=== PATIENT | female | born 1940 | race Caucasian/White ===

== ENCOUNTER 2016-08-10 14:58 | Inpatient (IN) | payer OTHER, MEDICAID ==
--- NOTE | 2016-08-10 15:18 | EDPHY ---
H & P Stated Complaint: fall getting off of toilet, wound to R buttocks Time Seen by Provider: 08/10/16 15:03 HPI/ROS: CHIEF COMPLAINT: Abrasion HISTORY OF PRESENT ILLNESS: The patient is a 75-year-old morbidly obese woman with significant lower extremity edema who fell from her toilet this afternoon and scratched her right buttocks on the toilet paper roll lucia. she takes Coumadin for history of atrial fibrillation . EMS was called for lift assist but decided to bring her here because of her anticoagulant use. The patient has a very hard time getting around at home but is currently under the care of home health and home massage and wears air oscillating leg compression devices in bed. She has also seen by physical therapy. she also has a venous stasis ulcer in her left heel that is well cared for. Her wound care nurses coming tomorrow. REVIEW OF SYSTEMS: Constitutional: denies: chills, fever, recent illness, recent injury EENTM: denies: blurred vision, double vision, nose congestion Respiratory: denies: cough, shortness of breath Cardiac: denies: chest pain, irregular heart rate, lightheadedness, palpitations Gastrointestinal/Abdominal: denies: abdominal pain, diarrhea, nausea, vomiting, blood streaked stools Genitourinary: denies: dysuria, frequency, hematuria, pain Musculoskeletal: denies: joint pain, muscle pain Skin: see HPI Neurological: denies: headache, numbness, paresthesia, tingling, dizziness, weakness Hematologic/Lymphatic: denies: blood clots, easy bleeding, easy bruising Immunologic/allergic: denies: HIV/AIDS, transplant EXAM: GENERAL: Morbid obesity HEAD: Atraumatic, normocephalic. EYES: Pupils equal round and reactive to light, extraocular movements intact, sclera anicteric, conjunctiva are normal. ENT: TMs normal, nares patent, oropharynx clear without exudates. Moist mucous membranes. NECK: Normal range of motion, supple without lymphadenopathy or JVD. LUNGS: Breath sounds clear to auscultation bilaterally and equal. No wheezes rales or rhonchi. HEART: Regular rate and rhythm without murmurs, rubs or gallops. ABDOMEN: Soft, nontender, normoactive bowel sounds. No guarding, no rebound. No masses appreciated. BACK: No CVA tenderness, no spinal tenderness, step-offs or deformities EXTREMITIES: Normal range of motion, no pitting or edema. No clubbing or cyanosis. NEUROLOGICAL: Cranial nerves II through XII grossly intact. Normal speech, normal gait. 5/5 strength, normal movement in all extremities, normal sensation PSYCH: Normal mood, normal affect. SKIN: Abrasion to right gluteus and cleft, no laceration, no hematoma Source: Patient, EMS Exam Limitations: No limitations - Personal History Current Tetanus/Diphtheria Vaccine: Unsure Current Tetanus Diphtheria and Acellular Pertussis (TDAP): Unsure - Medical/Surgical History Hx Asthma: No Hx Chronic Respiratory Disease: No Hx Diabetes: Yes Hx Cardiac Disease: Yes Hx Renal Disease: No Hx Cirrhosis: No Hx Alcoholism: No Hx HIV/AIDS: No Hx Splenectomy or Spleen Trauma: No Other PMH: PMH- kidney stones, arthritis, DM, breast CA-1992, HTN, afib. PSH- R masectomy, dagmar, lymphadema, chronic wound lle, PE's, chronically anticoagulated, copd, asthma - Family History Significant Family History: No pertinent family hx - Social History Smoking Status: Never smoked Alcohol Use: Sober Drug Use: None Constitutional: Initial Vital Signs Temperature (C) 36.9 C 08/10/16 15:10 Heart Rate 87 08/10/16 15:10 Respiratory Rate 18 08/10/16 15:10 Blood Pressure 112/82 H 08/10/16 15:10 O2 Sat (%) 72 L 08/10/16 15:10 O2 Delivery Mode Room Air O2 (L/minute) 4 Allergies/Adverse Reactions: bee pollen [Bee Pollen] Allergy (Intermediate, Verified 02/19/16 23:08) adhesive Allergy (Verified 02/19/16 23:08) Penicillins Allergy (Verified 08/10/16 15:10) Home Medications: Medication Instructions Recorded Albuterol [Proventil Neb] 3 ml IH TID 02/20/16 Diltiazem HCl [Cartia XT 180mg] 180 mg PO DAILY 02/20/16 Losartan Potassium [Cozaar 50 mg 50 mg PO HS 02/20/16 (*)] Oxybutynin Chloride [Ditropan] 5 mg PO BID 02/20/16 sulfaSALAzine [Azulfidine 500 MG 500 mg PO BID 08/31/16 (*)] Atorvastatin Calcium [Lipitor 40 40 mg PO HS 08/10/16 mg (*)] Diclofenac Sodium [Voltaren Gel 1 radha TP QID 08/10/16 (*)] Herbals/Supplements -Info Only 1 ea PO DAILY 08/10/16 Insulin Aspart [novoLOG] 5 units SC TIDMEAL 08/10/16 Insulin Detemir [Levemir] 20 unit SQ BID 08/10/16 Metoprolol Tartrate [Lopressor 100 100 mg PO BID 08/10/16 mg (*)] Naproxen Sodium [Aleve 220 MG (*)] 220 mg PO BID PRN 08/10/16 Warfarin Sodium [Coumadin 5MG (*)] 5 mg PO DAILY16 08/10/16 Medical Decision Making ED Course/Re-evaluation: I had an extensive discussion with this patient and her family about her mobility at home and ability to take care of herself. I offered admission the hospital in even considered placement to nursing over the patient adamantly denies this. She states that she wants to be in her home and would rather than go anywhere else. She has several care providers assisting her with this already. The wound on her gluteus is very minimal. It was cleaned and dressed with antibiotic ointment. No hematoma. She did not hit her head. She has normal range of motion of all extremities. She denies neck pain. The patient states that she does not see what we can do her for her hospital and does not think that she needs to be here but that EMS insisted she come. 4:30 p.m. after further discussion and discussion with case management the patient and family have decided to stay in the hospital with concerns that she cannot care for herself at home alone. This is reasonable. I discussed the case with Dr. Ricky Chow who will admit. I will order lab work. Differential Diagnosis: Partial list of the Differential diagnosis considered include but were not limited to; fall, abrasion, head injury, obesity, lymphedema and although unlikely based on the history and physical exam, I also considered infection, altered mental status, CVA, acute coronary disease. I discussed these differential diagnoses and the plan with the patient as well as the usual and expected course. The patient understands that the diagnosis is provisional and that in medicine we are not always correct and that further workup is often warranted. Usual and customary warnings were given. All of the patient's questions were answered. The patient was instructed to return to the emergency department should the symptoms at all worsen or return, otherwise to followup with the physician as we discussed. Departure - Departure Disposition: Home, Routine, Self-Care Clinical Impression: Abrasion Morbid obesity Qualifiers: Obesity type: due to excess calories Qualified Code(s): E66.01 - Morbid (severe ) obesity due to excess calories Condition: Fair
[2016-08-10 17:15] LABS: % IMMATURE GRANULYOCYTES 0.3 % (0.0-1.1); ABSOLUTE IMMATURE GRANULOCYTES 0.02 10^3/uL (0.00-0.10); ADD DIFF? NO; ADD MORPH? NO; ADD SCAN? NO; ATYPICAL LYMPHOCYTE FLAG 0 (0-99); FRAGMENT RBC FLAG 20 (0-99); HEMOGLOBIN 11.5 g/dL (12.6-16.3); LEFT SHIFT FLG 0 (0-99); LIPEMIA HEMOLYSIS FLAG 80 (0-99); MEAN CELL HEMOGLOBIN 29.5 pg (27.9-34.1); MEAN CELL HEMOGLOBIN CONCENTR. 31.9 g/dL (32.4-36.7); MEAN CELL VOLUME 92.3 fL (81.5-99.8); MEAN PLATELET VOLUME 10.9 fL (8.7-11.7); PLATELET CLUMPS FLAG 0 (0-99); PLATELET COUNT 161 10^3/uL (150-400); RED CELL DISTRIBUTION WIDTH 17.9 % (11.5-15.2)
[2016-08-10 17:25] LABS: INR 2.44 (0.83-1.16); PROTIME(PATIENT) 26.7 SEC (12.0-15.0)
[2016-08-10 17:26] LABS: APTT 33.6 SEC (23.0-38.0)
[2016-08-10 17:30] LABS: ANION GAP 9 mEq/L (8-16); CALCIUM 9.2 mg/dL (8.5-10.4); CARBON DIOXIDE 22 mEq/l (22-31); CHLORIDE 106 mEq/L (97-110); CREATININE 1.4 mg/dL (0.6-1.0); GLOMERULAR FILTRATION RATE 37; GLUCOSE 224 mg/dL (70-100); POTASSIUM 5.5 mEq/L (3.5-5.2); SODIUM 137 mEq/L (134-144)
--- NOTE | 2016-08-10 17:58 | PDGENHP ---
History and Physical - Chief Complaint fall - History of Present Illness 75F with a history of morbid obesity and chronic lymphedema presents with an abrasion sustained after falling while walking to the toilet today. Earlier this morning, while ambulating to the toilet the patient fell on her right buttock, possibly against the toilet paper lucia. EMS was called for lift assist, however, when they learned she was on coumadin for atrial fibrillation, she was transported to [facility]. She is currently complaining of right knee pain with movement and increased swelling. She states she is compliant with a low salt diet. Her daughters Xochitl and Chary moved her out of [facility] in May. Her family is unable to care for her at home. She denies any chest pain, and has chronic shortness of breath requiring 2L/min O2 at home. She ambulates with two canes, and she does not want a walker. History Information - Allergies/Home Medication List Allergies/Adverse Reactions: bee pollen [Bee Pollen] Allergy (Intermediate, Verified 02/19/16 23:08) adhesive Allergy (Verified 02/19/16 23:08) Penicillins Allergy (Verified 08/10/16 15:10) Home Medications: Albuterol [Proventil Neb] 3 ml IH TID 02/20/16 [Last Taken 08/03/16] Diltiazem HCl [Cartia XT 180mg] 180 mg PO DAILY 02/20/16 [Last Taken 08/10/16] Losartan Potassium [Cozaar 50 mg (*)] 50 mg PO HS 02/20/16 [Last Taken 08/09/16] Oxybutynin Chloride [Ditropan] 5 mg PO BID 02/20/16 [Last Taken 08/09/16] sulfaSALAzine [Azulfidine 500 MG (*)] 500 mg PO BID 02/20/16 [Last Taken ] Atorvastatin Calcium [Lipitor 40 mg (*)] 40 mg PO HS 08/10/16 [Last Taken ] Diclofenac Sodium [Voltaren Gel (*)] 1 radha TP QID 08/10/16 [Last Taken Unknown] Herbals/Supplements -Info Only 1 ea PO DAILY 08/10/16 [Last Taken Unknown] Insulin Aspart [novoLOG] 5 units SC TIDMEAL 08/10/16 [Last Taken 08/09/16] Insulin Detemir [Levemir] 20 unit SQ BID 08/10/16 [Last Taken 08/09/16] Metoprolol Tartrate [Lopressor 100 mg (*)] 100 mg PO BID 08/10/16 [Last Taken 08:00] Naproxen Sodium [Aleve 220 MG (*)] 220 mg PO BID PRN 08/10/16 [Last Taken Unknown] Warfarin Sodium [Coumadin 5MG (*)] 5 mg PO DAILY16 08/10/16 [Last Taken 08/09/16 ] I have personally reviewed and updated: family history, medical history, social history, surgical history - Past Medical History Additional medical history: HTN, GERD, lymphedema 2/2 breast CA in 1992, Type 2 DM, Atrial fibrillation, PE 4 years ago, arthritis, COPD/asthma on chronic supplemental o2, hospitalization 02/2015 for hypoglycemia and strep mitis bactermia due to a diabetic foot infection - Surgical History Additional surgical history: umbilical hernia, cholecystectomy, i&d left heel ulcer 03/07 - Social History Smoking Status: Never smoked Alcohol Use: Sober Drug Use: None Review of Systems ROS: 10pt was reviewed & negative except for what was stated in HPI & below Respiratory: Reports: shortness of breath (chronic 2L/min) Genitourinary: Reports: incontinence Physical Exam Temp Pulse Resp BP Pulse Ox 37 C 78 15 136/80 H 95 08/10/16 17:41 08/10/16 17:41 08/10/16 17:41 08/10/16 17:41 08/10/16 17:41 O2 (L/minute) 4 Constitutional: no apparent distress, not in pain Eyes: PERRL, anicteric sclera, EOMI Ears, Nose, Mouth, Throat: moist mucous membranes, hearing normal, ears appear normal, no oral mucosal ulcers Cardiovascular: regular rate and rhythym, no murmur, rub, or gallop, No edema Respiratory: no respiratory distress, no rales or rhonchi, clear to auscultation , expiratory wheeze, No rhonchi Gastrointestinal: normoactive bowel sounds, soft, non-tender abdomen, no palpable masses, No guarding, No rebound Genitourinary: no bladder fullness, no bladder tenderness Skin: other (reported right buttock abrasion per ED note) Neurologic: AAOx3, CN II-XII Intact, No facial droop Psychiatric: interacting appropriately, not anxious, not encephalopathic, thought process linear Lab Data & Imaging Review 08/10/16 17:05 08/10/16 17:05 WBC 6.04 10^3/uL (3.80-9.50) 08/10/16 17:05 RBC 3.90 10^6/uL (4.18-5.33) L 08/10/16 17:05 Hgb 11.5 g/dL (12.6-16.3) L 08/10/16 17:05 Hct 36.0 % (38.0-47.0) L 08/10/16 17:05 MCV 92.3 fL (81.5-99.8) 08/10/16 17:05 MCH 29.5 pg (27.9-34.1) 08/10/16 17: MCHC 31.9 g/dL (32.4-36.7) L 08/10/16 17: RDW 17.9 % (11.5-15.2) H 08/10/16 17:05 Plt Count 161 10^3/uL (150-400) 08/10/16 17:05 MPV 10.9 fL (8.7-11.7) 08/10/16 17:05 Neut % (Auto) 73.1 % (39.3-74.2) 08/10/16 17:05 Lymph % (Auto) 13.7 % (15.0-45.0) L 08/10/16 17:05 Gove % (Auto) 7.8 % (4.5-13.0) 08/10/16 17:05 Eos % (Auto) 4.1 % (0.6-7.6) 08/10/16 17:05 Baso % (Auto) 1.0 % (0.3-1.7) 08/10/16 17:05 Nucleat RBC Rel Count 0.0 % (0.0-0.2) 08/10/16 17:05 Absolute Neuts (auto) 4.41 10^3/uL (1.70-6.50) 08/10/16 17:05 Absolute Lymphs (auto) 0.83 10^3/uL (1.00-3.00) L 08/10/16 17:05 Absolute Monos (auto) 0.47 10^3/uL (0.30-0.80) 08/10/16 17:05 Absolute Eos (auto) 0.25 10^3/uL (0.03-0.40) 08/10/16 17:05 Absolute Basos (auto) 0.06 10^3/uL (0.02-0.10) 08/10/16 17:05 Absolute Nucleated RBC 0.00 10^3/uL (0-0.01) 08/10/16 17:05 Immature Gran % 0.3 % (0.0-1.1) 08/10/16 17:05 Immature Gran # 0.02 10^3/uL (0.00-0.10) 08/10/16 17:05 PT 26.7 SEC (12.0-15.0) H 08/10/16 17:05 INR 2.44 (0.83-1.16) H 08/10/16 17:05 APTT 33.6 SEC (23.0-38.0) 08/10/16 17:05 Sodium 137 mEq/L (134-144) 08/10/16 17:05 Potassium 5.5 mEq/L (3.5-5.2) H 08/10/16 17:05 Chloride 106 mEq/L (97-110) 08/10/16 17:05 Carbon Dioxide 22 mEq/l (22-31) 08/10/16 17:05 Anion Gap 9 mEq/L (8-16) 08/10/16 17:05 BUN 38 mg/dL (7-23) H 08/10/16 17:05 Creatinine 1.4 mg/dL (0.6-1.0) H 08/10/16 17:05 Estimated GFR 37 08/10/16 17:05 Glucose 224 mg/dL (70-100) H 08/10/16 17:05 Calcium 9.2 mg/dL (8.5-10.4) 08/10/16 17:05 Assessment & Plan Assessment: 75F with morbid obesity and chronic lymphedema presents with an abrasion s/p mechanical fall #failure to thrive and weakness -the patient is currently unsafe to return to her home independent living situation due to inability to ambulate. She was discharged from SNF 2 months ago and will likely require further rehabilitation prior to returning home #chronic hypoxemic respiratory failure in setting of COPD/asthma Continue O2 #afib Regular at this time, continue ASA, atenolol, warfarin, INR is appropriate # anemia Chronic, normocytic, will monitor # CKD Creatinine 1.4, stable, will monitor #hyperkalemia No weakness hold Cozaar ekg repeat labs in am will hold Kayexalate at this time #Right Buttock abrasion (present on admission) with gluteal pressure sores stage II-III also present on admission wound care consult #chronic L heel cellulitis with history of strep mitis bacteremia and foot infections Managed by wound care #dispo will admit to inpatient. likely need snf
[2016-08-10] MEDS ORDERED: PARAMETERS MISC PRN (20:10)
[2016-08-10] MEDS ORDERED: D50W 25 GM/50 ML VIAL IVP PRN (20:10)
[2016-08-10] MEDS ORDERED: D50W 25 GM/50 ML SYR IVP PRN (20:10)
[2016-08-10] MEDS: ALBUTEROL 3 ML DEYVIAL IH SCH (20:56)
[2016-08-10] MEDS ORDERED: NON-FORMULARY NEW DRUG (Insulin Detemir [Levemir] 20 UNIT) SQ SCH (21:00)
[2016-08-10] MEDS: METOPROLOL TARTRATE 100 MG TAB PO SCH (21:34)
[2016-08-10] MEDS: NON-FORMULARY NEW DRUG (Diclofenac Sodium [Voltaren Gel (*)] 1 APP) TP SCH ×2 (21:35→22:18)
[2016-08-10] MEDS: INSULIN GLARGINE 100 UNITS/ML SYRINGE SC SCH (21:35)
[2016-08-10] MEDS: OXYBUTYNIN CHLORIDE 5 MG TAB PO SCH (21:35)
[2016-08-10] MEDS: ATORVASTATIN CALCIUM 40 MG TAB PO SCH (21:35)
[2016-08-10] MEDS: sulfaSALAzine 500 MG TAB PO SCH (22:26)
[2016-08-10] MEDS ORDERED: FLU VACC TS 2016-17(65YR+)/PF 0.5 ML SYR (FLUZONE HIGH DOSE) IM ONE (23:32)
[2016-08-11] MEDS: traMADol 50 MG TAB PO PRN (03:06)
[2016-08-11 03:07] LABS: ANION GAP 9 mEq/L (8-16); CALCIUM 8.8 mg/dL (8.5-10.4); CARBON DIOXIDE 24 mEq/l (22-31); CHLORIDE 108 mEq/L (97-110); CREATININE 1.4 mg/dL (0.6-1.0); GLOMERULAR FILTRATION RATE 37; GLUCOSE 214 mg/dL (70-100); POTASSIUM 5.2 mEq/L (3.5-5.2); SODIUM 141 mEq/L (134-144)
--- NOTE | 2016-08-11 07:34 | CPEKG ---
Heart Rate: 90 RR Interval: 667 QRSD Interval: 90 QT Interval: 372 QTC Interval: 455 QRS Langley: 31 T Wave Langley: 44 EKG Severity - ABNORMAL ECG - EKG Impression: ATRIAL FIBRILLATION, V-RATE 73-109 EKG Impression: LOW VOLTAGE IN FRONTAL LEADS Electronically Signed By: Shawn Darnell 11-Aug-2016 07:45:07
[2016-08-11] MEDS ORDERED: INSULIN ASPART 5 UNIT SC SCH (08:00)
[2016-08-11] MEDS: INSULIN LISPRO 100 UNIT/ML SC SCH ×3 (08:31→18:27)
[2016-08-11] MEDS: INSULIN GLARGINE 100 UNITS/ML SYRINGE SC SCH ×2 (08:31→23:06)
[2016-08-11] MEDS: METOPROLOL TARTRATE 100 MG TAB PO SCH ×2 (08:32→21:20)
[2016-08-11] MEDS: sulfaSALAzine 500 MG TAB PO SCH ×2 (08:32→21:20)
[2016-08-11] MEDS: DILTIAZEM CD 180 MG CAP PO SCH (08:33)
[2016-08-11] MEDS: OXYBUTYNIN CHLORIDE 5 MG TAB PO SCH ×2 (08:33→21:20)
[2016-08-11] MEDS ORDERED: NON-FORMULARY NEW DRUG (Diltiazem Hcl [Cartia Xt 180mg] 180 MG) PO SCH (09:00)
[2016-08-11] MEDS ORDERED: Herbals/Supplements -Info Only PO SCH (09:00)
[2016-08-11] MEDS ORDERED: ENOXAPARIN 40 MG/0.4 ML SYR SC SCH (09:00)
[2016-08-11] MEDS: ALBUTEROL 3 ML DEYVIAL IH SCH ×3 (09:24→21:40)
--- NOTE | 2016-08-11 12:03 | HOSPPROG ---
Hospitalist Progress Note Assessment/Plan: Patient is a 75-year-old female presented to the emergency room due to gait instability. She sustained a fall after walking to the toilet earlier that day. On admission she was complaining of right knee pain with any type of movement. Her daughters were with her and are unable to care for her at home. Today is my 1st encounter with the patient. Chart reviewed. * Overall failure to thrive due to weakness and gait instability - she was recently at a [facility] facility approximately 2 [facility] ago - Physical therapy and Occupational therapy are working with her /recommending a [facility] facility - suspect her failure to thrive is multifactorial including morbid obesity, chronic lymphedema, atrial fibrillation * atrial fibrillation - reviewed her 12 lead ECG which shows atrial fibrillation rate controlled - continue oral anticoagulation atenolol and aspirin therapy * chronic kidney disease - creatinine is 1.4 * hyperkalemia - resolved /Cozaar on hold *chronic hypoxemia -cont O2 * anemia -follow * right buttock abrasion /present on admission with gluteal pressure sores - wound care to further evaluate * chronic left heel cellulitis with a history of strep mitis bacteremia and foot infections -wound care * severe chronic lymphedema (secondary to breast Ca) - likely impaired impacting her ability to ambulate -would benefit from lymphatic drainage from PT and pneumatic compression stockings -?if she would qualify for IP rehab * type 2 diabetes - on long-acting insulin, glucoses are uncontrolled -will add sliding scale -ADA diet *Morbid obesity/BMI of 45 *plan: reviewed her care w CM/she will need SNF and possibly ferry terminal agent care Subjective: Liliya has no specific complaints/ she is concerned about her ability to mobilize/ Objective: Vital Signs Temp Pulse Resp BP Pulse Ox 36.6 C 77 14 117/73 91 L 08/11/16 11:56 08/11/16 11:56 08/11/16 11:56 08/11/16 11:56 08/11/16 11:56 Laboratory Results 08/10/16 17:05 08/11/16 02:30 08/10/16 08/11/16 08/12/16 05:59 05:59 05:59 Output Total 400 Balance -400 PT 26.7 SEC (12.0-15.0) H 08/10/16 17:05 INR 2.44 (0.83-1.16) H 08/10/16 17:05 - Physical Exam Constitutional: no apparent distress, chronically ill appearing, obese Eyes: PERRL Ears, Nose, Mouth, Throat: hearing normal Cardiovascular: regular rate and rhythym, edema (bilateral lower extremity lymphedema/severe) Respiratory: no respiratory distress, no rales or rhonchi Gastrointestinal: normoactive bowel sounds Skin: warm Musculoskeletal: generalized weakness Neurologic: AAOx3 Psychiatric: interacting appropriately, not anxious ICD10 Worksheet Patient Problems: Problems Problem Status Onset Abrasion Acute Morbid obesity Acute Atrial fibrillation Acute Cellulitis Acute Hyperglycemia Acute
[2016-08-11] MEDS: NON-FORMULARY NEW DRUG (Diclofenac Sodium [Voltaren Gel (*)] 1 APP) TP SCH ×3 (12:31→23:06)
[2016-08-11] MEDS ORDERED: D50W 25 GM/50 ML SYR IVP PRN (12:33)
--- NOTE | 2016-08-11 16:10 | WOCRNPDOC ---
[facility] Advanced Assessment Note - Skin Integrity Problem, Advanced Assess Right Medial Buttock Dressing Type: Open to Air Exudate Amount: Minimal Exudate Characteristic(s): Serosanguinous Integumentary Issue Intervention: Dressing Applied Deonna Wound Tissue: Erythema Wound Bed Color: [place], Yellow Wound Bed Constitution: Smooth Tissue, Adhered Slough Wound Edges: Attached Site Odor: None Site Measurement - Head-to-Toe Length X Width X Depth (cm): 1.5x1x0.1 Skin Integrity Problem Comment: Present on admission wound, unknow etiology, but due to location there is a smaller likelyhood that pressure was the original cause. Cleaned with wound cleasner and skin prep applied deonna wound. Honey gel to wound bed and covered with honey HCS (to encourage autolytic debridement) and then covered with Allevyn life. Left Heel Dressing Type: Coban, Kerlix, Super Absorbant Dressing Description: Intact, Shadowed Exudate Amount: Minimal Exudate Characteristic(s): Sanguinous (dried on dressing, not draining during assessment) Integumentary Issue Intervention: Dressing Changed, Dressing Initialed & Dated Deonna Wound Tissue: Calloused Wound Bed Color: Red Wound Bed Constitution: Granulation Tissue, Tunneling (0.8 cm at 9 oclock) Site Odor: None Site Measurement - Head-to-Toe Length X Width X Depth (cm): 0.5x1.4x0.8 Skin Integrity Problem Comment: Flushed with wound cleanser. Atractain cream deonna wound. Packed wound bed with virgilio Ag and then covered wound with super absorbant sorbion sachet clover. Wrapped with kerlix. Right Buttock Pressure Injury Dressing Type: Allevyn Life Dressing Description: Clean/Dry, Intact Exudate Amount: Minimal Exudate Characteristic(s): Serous Integumentary Issue Intervention: Dressing Changed Deonna Wound Tissue: Erythema Wound Bed Constitution: Smooth Tissue (60%), Unstable Eschar (40%) Wound Edges: Epithelizing Site Measurement - Head-to-Toe Length X Width X Depth (cm): 2x2x0.1 with an island of 1x0.5xeschar Pressure Injury Stage: Unstageable Pressure Injury Present on Admit: Yes Skin Integrity Problem Comment: Partial thickness wound border to a small central island of eschar. Cleaned with wound cleasner and skin prep applied deonna wound. Honey gel to wound bed and covered with honey HCS (to encourage autolytic debridement) and then Allevyn life. Vinayak MARTINO in room for all care. Bilateral Lower Leg Dressing Type: Luly Boots Integumentary Issue Intervention: Lotion/Cream Applied (Atractain to areas not under Unna Boots) Deonna Wound Tissue: Scaly, Lipodermatosclerosis, Crusted, Hypertrophic, Lichenification Extremity Temperature: Warm Lymphedema Present: Yes Skin Integrity Problem Comment: Discussed care with outpatient wound healing center [facility]. Confirmed that Unna boots were placed on Thursday and that patient can have them left on until Tuesday 08/15. There are no wounds under the Unna Boots. Gluteal Cleft Dermatitis Dressing Type: Open to Air Skin Integrity Problem Comment: Mild moisture associated dermatitis. Will write orders for care. No pressure injury present on coccyx. All erythema blanching.
[2016-08-11] MEDS: WARFARIN SODIUM 5 MG TAB PO SCH (16:30)
--- NOTE | 2016-08-11 16:50 | WOCRNPDOC ---
[facility] Advanced Assessment Note - Skin Integrity Problem, Advanced Assess Bilateral Buttock Excoriation Dressing Type: AllevRox Resources Life Integumentary Issue Intervention: Dressing Removed Site Measurement - Head-to-Toe Length X Width X Depth (cm): L: 0.5x7x0.1, R: 5x0.5x0.1 Skin Integrity Problem Comment: Partial thickness Excoriation from mechanical fall prior to admission. No evidence of infection. No concerns.
[2016-08-11] MEDS: CHOLECALCIFEROL VIT D3 2,000 UNITS TAB/CAP PO SCH (21:20)
[2016-08-11] MEDS: ATORVASTATIN CALCIUM 40 MG TAB PO SCH (21:20)
[2016-08-12] MEDS: NON-FORMULARY NEW DRUG (Diclofenac Sodium [Voltaren Gel (*)] 1 APP) TP SCH ×4 (05:43→22:57)
[2016-08-12 05:53] LABS: ANION GAP 7 mEq/L (8-16); CALCIUM 9.1 mg/dL (8.5-10.4); CARBON DIOXIDE 23 mEq/l (22-31); CHLORIDE 108 mEq/L (97-110); CREATININE 1.3 mg/dL (0.6-1.0); GLOMERULAR FILTRATION RATE 40; GLUCOSE 86 mg/dL (70-100); POTASSIUM 5.2 mEq/L (3.5-5.2); SODIUM 138 mEq/L (134-144)
[2016-08-12 06:00] LABS: INR 1.96 (0.83-1.16); PROTIME(PATIENT) 22.4 SEC (12.0-15.0)
[2016-08-12] MEDS: ALBUTEROL 3 ML DEYVIAL IH SCH ×4 (09:31→21:40)
[2016-08-12] MEDS: INSULIN LISPRO 100 UNIT/ML SC SCH ×3 (09:57→18:09)
[2016-08-12] MEDS: OXYBUTYNIN CHLORIDE 5 MG TAB PO SCH ×2 (09:58→22:57)
[2016-08-12] MEDS: CHOLECALCIFEROL VIT D3 2,000 UNITS TAB/CAP PO SCH ×2 (09:58→22:57)
[2016-08-12] MEDS: sulfaSALAzine 500 MG TAB PO SCH ×2 (09:58→22:57)
[2016-08-12] MEDS: METOPROLOL TARTRATE 100 MG TAB PO SCH ×2 (09:58→22:57)
[2016-08-12] MEDS: DILTIAZEM CD 180 MG CAP PO SCH (09:58)
[2016-08-12] MEDS: INSULIN GLARGINE 100 UNITS/ML SYRINGE SC SCH ×2 (11:28→22:57)
[2016-08-12] MEDS: WARFARIN SODIUM 5 MG TAB PO SCH (14:59)
--- NOTE | 2016-08-12 16:26 | HOSPPROG ---
Hospitalist Progress Note Assessment/Plan: Patient is a 75-year-old female presented to the emergency room due to gait instability. She sustained a fall after walking to the toilet earlier that day. On admission she was complaining of right knee pain with any type of movement. Her daughters were with her and are unable to care for her at home. * Overall failure to thrive due to weakness and gait instability - [facility] - Physical therapy and Occupational therapy are working with her /recommending a jail facility - suspect her failure to thrive is multifactorial including morbid obesity, chronic lymphedema, atrial fibrillation * atrial fibrillation - reviewed her 12 lead ECG which shows atrial fibrillation rate controlled - continue oral anticoagulation,atenolol and aspirin therapy - INR subtherapeutic today/ cont close monitoring * chronic kidney disease - creatinine is 1.3 * hyperkalemia - resolved /Cozaar on hold *chronic hypoxemia -cont O2 * anemia -follow * right buttock pressure injury /present on admission with gluteal pressure sores - appreciate wound care - doesn't appear infectious * chronic left heel cellulitis with a history of strep mitis bacteremia and foot infections -wound care * severe chronic lymphedema - likely impaired impacting her ability to ambulate -would benefit from lymphatic drainage from PT (she had this done in the past with good results) -patient has her own pneumatic compression stockings * type 2 diabetes -on long-acting insulin, glucoses are uncontrolled -will add sliding scale -ADA diet *Morbid obesity/BMI of 45 *plan:cont current treatment, follow INR Subjective: Liliya has no c/o pain. Objective: Vital Signs Temp Pulse Resp BP Pulse Ox 37.2 C 92 18 148/72 H 93 08/12/16 16:00 08/12/16 16:00 08/12/16 16:00 08/12/16 16:00 08/12/16 16:00 Laboratory Results 08/10/16 17:05 08/12/16 05:12 08/11/16 08/12/16 08/13/16 05:59 05:59 05:59 Intake Total 175 Output Total 400 450 Balance -400 -275 PT 22.4 SEC (12.0-15.0) H 08/12/16 05:12 INR 1.96 (0.83-1.16) H 08/12/16 05:12 - Physical Exam Constitutional: chronically ill appearing, obese Eyes: PERRL Ears, Nose, Mouth, Throat: hearing normal Cardiovascular: regular rate and rhythym, edema (overall body edema/ significant lymphedema in lower extremities bilaterally) Respiratory: no respiratory distress, reduced air movement (bibasilar) Gastrointestinal: normoactive bowel sounds Skin: normal color Musculoskeletal: generalized weakness Neurologic: AAOx3 Psychiatric: interacting appropriately, not anxious ICD10 Worksheet Patient Problems: Problems Problem Status Onset Abrasion Acute Morbid obesity Acute Atrial fibrillation Acute Cellulitis Acute Hyperglycemia Acute
[2016-08-12] MEDS: ATORVASTATIN CALCIUM 40 MG TAB PO SCH (22:57)
[2016-08-13] MEDS ORDERED: LORazepam 2 MG/ML INJ IV ONE (00:30)
--- NOTE | 2016-08-13 01:07 | HOSPPROG ---
Hospitalist Progress Note Assessment/Plan: delirium possibly related to hypoxemia in the setting of pt not wearing o2 -cxr -repeat labs in am -consider ua in am if pt has signs of uti or elevation in wbc -ativan 1mg iv x 1 Subjective: went to examine patient and she asked me to leave. RN reports confusion and agitation. Pt refusing to wear 02 or take po meds Objective: Vital Signs Temp Pulse Resp BP Pulse Ox 37.2 C 94 16 148/72 H 92 08/12/16 16:00 08/12/16 23:29 08/12/16 16:27 08/12/16 16:00 08/12/16 23:29 Laboratory Results 08/10/16 17:05 08/12/16 05:12 08/11/16 08/12/16 08/13/16 05:59 05:59 05:59 Intake Total 175 Output Total 400 450 Balance -400 -275 PT 22.4 SEC (12.0-15.0) H 08/12/16 05:12 INR 1.96 (0.83-1.16) H 08/12/16 05:12 appears confused but not in acute distress ICD10 Worksheet Patient Problems: Problems Problem Status Onset Atrial fibrillation Acute Cellulitis Acute Hyperglycemia Acute Abrasion Acute Morbid obesity Acute
[2016-08-13] MEDS ORDERED: HALOPERIDOL LACT 5 MG/ML INJ IVP ONE (01:19)
[2016-08-13] MEDS: NON-FORMULARY NEW DRUG (Diclofenac Sodium [Voltaren Gel (*)] 1 APP) TP SCH ×4 (04:33→19:54)
[2016-08-13] MEDS: traMADol 50 MG TAB PO PRN (04:33)
[2016-08-13 05:35] LABS: % IMMATURE GRANULYOCYTES 0.2 % (0.0-1.1); ABSOLUTE IMMATURE GRANULOCYTES 0.01 10^3/uL (0.00-0.10); ADD DIFF? NO; ADD MORPH? NO; ADD SCAN? NO; ATYPICAL LYMPHOCYTE FLAG 0 (0-99); FRAGMENT RBC FLAG 20 (0-99); HEMATOCRIT 32.9 % (38.0-47.0); HEMOGLOBIN 10.1 g/dL (12.6-16.3); LEFT SHIFT FLG 0 (0-99); LIPEMIA HEMOLYSIS FLAG 80 (0-99); MEAN CELL HEMOGLOBIN 28.4 pg (27.9-34.1); MEAN CELL HEMOGLOBIN CONCENTR. 30.7 g/dL (32.4-36.7); MEAN CELL VOLUME 92.4 fL (81.5-99.8); MEAN PLATELET VOLUME 9.9 fL (8.7-11.7); PLATELET CLUMPS FLAG 0 (0-99); PLATELET COUNT 136 10^3/uL (150-400); RED BLOOD CELL COUNT 3.56 10^6/uL (4.18-5.33); RED CELL DISTRIBUTION WIDTH 18.1 % (11.5-15.2)
[2016-08-13 05:53] LABS: INR 2.41 (0.83-1.16); PROTIME(PATIENT) 26.5 SEC (12.0-15.0)
[2016-08-13 05:55] LABS: ANION GAP 9 mEq/L (8-16); CARBON DIOXIDE 22 mEq/l (22-31); CHLORIDE 109 mEq/L (97-110); CREATININE 1.3 mg/dL (0.6-1.0); GLOMERULAR FILTRATION RATE 40; GLUCOSE 140 mg/dL (70-100); POTASSIUM 5.2 mEq/L (3.5-5.2); SODIUM 140 mEq/L (134-144)
[2016-08-13] MEDS: DILTIAZEM CD 180 MG CAP PO SCH ×2 (08:24→11:28)
[2016-08-13] MEDS: CHOLECALCIFEROL VIT D3 2,000 UNITS TAB/CAP PO SCH ×3 (08:25→19:51)
[2016-08-13] MEDS: METOPROLOL TARTRATE 100 MG TAB PO SCH ×3 (08:25→19:52)
[2016-08-13] MEDS: sulfaSALAzine 500 MG TAB PO SCH ×3 (08:25→19:52)
[2016-08-13] MEDS: OXYBUTYNIN CHLORIDE 5 MG TAB PO SCH ×3 (08:25→19:52)
[2016-08-13] MEDS: INSULIN LISPRO 100 UNIT/ML SC SCH ×3 (09:01→18:03)
[2016-08-13] MEDS: ALBUTEROL 3 ML DEYVIAL IH SCH ×3 (09:04→21:13)
[2016-08-13] MEDS: INSULIN GLARGINE 100 UNITS/ML SYRINGE SC SCH ×2 (11:29→19:53)
[2016-08-13] MEDS: WARFARIN SODIUM 5 MG TAB PO SCH (15:44)
[2016-08-13] MEDS ORDERED: FUROSEMIDE 20 MG/2 ML VIAL IVP ONE (17:00)
--- NOTE | 2016-08-13 17:05 | HOSPPROG ---
Hospitalist Progress Note Assessment/Plan: Patient is a 75-year-old female presented to the emergency room due to gait instability. She sustained a fall after walking to the toilet earlier that day. On admission she was complaining of right knee pain with any type of movement. Her daughters were with her and are unable to care for her at home. * Overall failure to thrive due to weakness and gait instability - she was recently at a care home facility approximately 2 months ago - Physical therapy and Occupational therapy are working with her /recommending a care home facility - suspect her failure to thrive is multifactorial including morbid obesity, chronic lymphedema, atrial fibrillation *acute delerium -this occurred last night/ patient was agitated/ refused to wear oxygen/ given Haldol and Ativan/ was very somnolent this morning when I first evaluated -she's alert and oriented during my eval this afternoon, but very withdrawn/ hx of seeing [facility]/ CM f/u with this *fluid overloaded -will have RN place morrissey for strict I & O's/ she is incont of urine -give a dose of lasix tonight -check an echo in a.m.to evaluate LV function * atrial fibrillation - reviewed her 12 lead ECG which shows atrial fibrillation rate controlled - continue oral anticoagulation,atenolol and aspirin therapy - INR therapeutic today/ cont close monitoring * chronic kidney disease - creatinine is 1.3 * hyperkalemia - resolved /Cozaar on hold *chronic hypoxemia -cont O2 -patient has underlying COPD * anemia -follow * right buttock pressure injury /present on admission with gluteal pressure sores - appreciate wound care - doesn't appear infectious * chronic left heel cellulitis with a history of strep mitis bacteremia and foot infections -wound care * severe chronic lymphedema - likely impaired impacting her ability to ambulate -would benefit from lymphatic drainage from PT (she had this done in the past with good results) -patient has her own pneumatic compression stockings * type 2 diabetes -on long-acting insulin, glucoses are uncontrolled -will add sliding scale -ADA diet *Morbid obesity/BMI of 45 *plan: place morrissey, give dose of lasix, check bnp and chemistry panel, get an echo Subjective: rhina has no complaints, except irritated with me when questions are asked. Objective: Vital Signs Temp Pulse Resp BP Pulse Ox 36.8 C 85 18 143/97 H 93 02/22/17 15:17 08/13/16 16:01 08/13/16 16:01 08/13/16 15:17 08/13/16 16:01 Laboratory Results 08/13/16 05:20 08/13/16 05:20 08/12/16 08/13/16 08/14/16 05:59 05:59 05:59 Intake Total 175 Output Total 450 Balance -275 PT 26.5 SEC (12.0-15.0) H 08/13/16 05:20 INR 2.41 (0.83-1.16) H 08/13/16 05:20 - Physical Exam Constitutional: chronically ill appearing, obese, uncomfortable Eyes: PERRL Ears, Nose, Mouth, Throat: hearing normal Cardiovascular: irregularly irregular, edema (overall body edema/ severe lymphedema in lower extremities) Respiratory: reduced air movement, expiratory wheeze, bronchial breath sounds Gastrointestinal: normoactive bowel sounds Skin: warm Musculoskeletal: generalized weakness Neurologic: AAOx3 Psychiatric: not encephalopathic, agitated ICD10 Worksheet Patient Problems: Problems Problem Status Onset Atrial fibrillation Acute Cellulitis Acute Hyperglycemia Acute Abrasion Acute Morbid obesity Acute
[2016-08-13] MEDS: ATORVASTATIN CALCIUM 40 MG TAB PO SCH (19:51)
[2016-08-14] MEDS: NON-FORMULARY NEW DRUG (Diclofenac Sodium [Voltaren Gel (*)] 1 APP) TP SCH ×4 (05:20→22:18)
[2016-08-14 06:13] LABS: INR 2.82 (0.83-1.16)
[2016-08-14 06:21] LABS: ANION GAP 6 mEq/L (8-16); CALCIUM 9.1 mg/dL (8.5-10.4); CARBON DIOXIDE 25 mEq/l (22-31); CHLORIDE 108 mEq/L (97-110); CREATININE 1.3 mg/dL (0.6-1.0); GLOMERULAR FILTRATION RATE 40; GLUCOSE 119 mg/dL (70-100); POTASSIUM 5.4 mEq/L (3.5-5.2); SODIUM 139 mEq/L (134-144)
[2016-08-14] MEDS ORDERED: FUROSEMIDE 40 MG/4 ML VIAL IVP ONE ×2 (08:06→14:27)
[2016-08-14] MEDS: INSULIN GLARGINE 100 UNITS/ML SYRINGE SC SCH ×2 (09:21→22:17)
[2016-08-14] MEDS: METOPROLOL TARTRATE 100 MG TAB PO SCH ×2 (09:24→22:17)
[2016-08-14] MEDS: sulfaSALAzine 500 MG TAB PO SCH ×2 (09:24→22:17)
[2016-08-14] MEDS: OXYBUTYNIN CHLORIDE 5 MG TAB PO SCH ×2 (09:24→22:17)
[2016-08-14] MEDS: DILTIAZEM CD 180 MG CAP PO SCH (09:24)
[2016-08-14] MEDS: CHOLECALCIFEROL VIT D3 2,000 UNITS TAB/CAP PO SCH ×2 (09:24→22:17)
[2016-08-14] MEDS: INSULIN LISPRO 100 UNIT/ML SC SCH ×3 (09:27→18:08)
[2016-08-14] MEDS: ALBUTEROL 3 ML DEYVIAL IH SCH ×3 (09:46→20:42)
--- NOTE | 2016-08-14 09:58 | HOSPPROG ---
Hospitalist Progress Note Assessment/Plan: Patient is a 75-year-old female presented to the emergency room due to gait instability. She sustained a fall after walking to the toilet earlier that day. On admission she was complaining of right knee pain with any type of movement. Her daughters were with her and are unable to care for her at home. * Overall failure to thrive due to weakness and gait instability - she was recently at a senior care facility approximately 2 months ago - Physical therapy and Occupational therapy are working with her /recommending a senior care facility - suspect her failure to thrive is multifactorial including morbid obesity, chronic lymphedema, atrial fibrillation *acute delerium -none further *fluid overloaded -morrissey placed for strict I & O -echo pending -bnp elevated/ lasix ordered -patient states she take lasix prn * atrial fibrillation - reviewed her 12 lead ECG which shows atrial fibrillation rate controlled - continue oral anticoagulation,atenolol and aspirin therapy - INR therapeutic today/ cont close monitoring * chronic kidney disease - creatinine is 1.3 * hyperkalemia -lasix to be given /Cozaar on hold *chronic hypoxemia -cont O2 -patient has underlying COPD * anemia -follow * right buttock pressure injury /present on admission with gluteal pressure sores - appreciate wound care - doesn't appear infectious * chronic left heel cellulitis with a history of strep mitis bacteremia and foot infections -wound care * severe chronic lymphedema - likely impaired impacting her ability to ambulate -would benefit from lymphatic drainage from PT (she had this done in the past with good results) -patient has her own pneumatic compression stockings * type 2 diabetes -on long-acting insulin, glucoses are uncontrolled -will add sliding scale -ADA diet *Morbid obesity/BMI of 45 *plan:CM working on placement/ daughter to look at [facility]. Patient doesn't want to go to [facility]/ doesn't like the food there. Subjective: Liliya has no c/o pain. Objective: Vital Signs Temp Pulse Resp BP Pulse Ox 36.8 C 118 H 30 H 142/100 H 93 08/14/16 07:01 08/14/16 09:47 08/14/16 09:47 08/14/16 07:01 08/14/16 09:47 Laboratory Results 08/13/16 05:20 08/14/16 05:30 08/13/16 08/14/16 08/15/16 05:59 05:59 05:59 Intake Total 550 Output Total 850 450 Balance -850 100 PT 30.0 SEC (12.0-15.0) H 08/14/16 05:30 INR 2.82 (0.83-1.16) H 08/14/16 05:30 - Physical Exam Constitutional: not in pain, chronically ill appearing, obese Eyes: PERRL Ears, Nose, Mouth, Throat: hearing normal Cardiovascular: irregularly irregular, edema (body edema/ has sig lymphedema) Respiratory: no respiratory distress, reduced air movement, other (few crackles) Genitourinary: morrissey in urethra Skin: warm Neurologic: AAOx3 Psychiatric: flat affect ICD10 Worksheet Patient Problems: Problems Problem Status Onset Abrasion Acute Morbid obesity Acute Atrial fibrillation Acute Cellulitis Acute Hyperglycemia Acute
--- NOTE | 2016-08-14 10:26 | ECHO ---
[id number] + + [phone] : : [place] [address] : : [phone] + Adult Echocardiographic Report + ----+ :Name: SHAHNAZ WESTBROOK JStudy Date: 08/14/2016 08:25 AM : : Hospital Admission Number: [id number] Location: 396: :: 1940 Gender: Female Height: 66 in : :Age: 76 yrs Race: WH Weight: 280 lb : :Reason For Study: afib, increasingly SOB : : BSA: 2.3 meters2 : :History: Streptococcus, bacteremia, afib : + ----+ MMode/2D Measurements \T\ Calculations IVSd: 1.00 cm LVIDd: 4.3 cm FS: 21.0 % LVOT diam: 1.9 cm LVPWd: 1.1 cm LVIDs: 3.4 cm EDV(Teich): 82.7 ml LVOT area: 2.8 cm2 ESV(Teich): 47.2 ml EF(Teich): 43.0 % Normal Measurement Values: + + :LVIDd (3.5-5.7cm) IVSd (0.6-1.1cm) LVPWd (0.6-1.1cm) Aortic Root (2.0-3.7cm)Left Atrium (1.5-4.0cm): :LV Vol(d) (76-115ml) LV Vol(s) (29-48ml) Ejec Fraction (50-65%)PV Jeramie (0.6- 1.2m/s) TV Jeramie (0.4-1.0m/s) : :MV E Jeramie (0.8-1.0m/s)MV A Jeramie (0.3-1.0m/s)LVOT Jeramie (0.7-1.2m/s) Asc Ao Jeramie ( 0.9-1.8m/s) : + + Doppler Measurements \T\ Calculations MV E max jeramie: MV V2 max: Ao mean PG: LV V1 mean P.8 cm/sec 142.5 cm/sec 5.5 mmHg 1.9 mmHg MV dec time: MV max PG: Ao V2 mean: LV V1 mean: 0.20 sec 8.1 mmHg 110.2 cm/sec 63.7 cm/sec MV V2 mean: Ao V2 VTI: 26.8 cm LV V1 VTI: 17.1 cm 99.4 cm/sec MAGDALENO(I,D): 1.8 cm2 MV mean P.6 mmHg MV V2 VTI: 24.8 cm MVA(VTI): 1.9 cm2 SV(LVOT): 47.4 ml PA V2 max: TR max jeramie: 89.2 cm/sec 276.0 cm/sec PA max PG: TR max P.2 mmHg 30.5 mmHg Left Ventricle The left ventricle is normal in size and function. There is normal left ventricular wall thickness. Ejection Fraction = 50-55%. There is Doppler evidence for diastolic dysfunction. Regional wall motion abnormalities cannot be excluded due to limited visualization. Right Ventricle The right ventricle is grossly normal size. The right ventricular systolic function is mildly reduced. Atria The left atrial size is normal. Right atrium not well visualized. The interatrial septum is intact with no evidence for an atrial septal defect. Mitral Valve The mitral valve is normal in structure and function. There is mild mitral annular calcification. There is trace mitral regurgitation. Tricuspid Valve The tricuspid valve is normal in structure and function. There is no tricuspid stenosis. There is mild tricuspid regurgitation. Aortic Valve There is mild aortic valve calcification. There is no aortic stenosis. There is no aortic insufficiency. Pulmonic Valve The pulmonic valve is not well visualized. There is no pulmonic valvular stenosis. Great Vessels The aortic root is not well visualized. Pericardium/Pleural There is a fat pad seen. There is no pericardial effusion. Conclusion A complete two-dimensional transthoracic echocardiogram was performed (2D, M-mode, Doppler and color flow Doppler). Technically difficult study due to body habitus. Patient unable to lay on left side. The left ventricle is normal in size and function. Ejection Fraction = 50-55%. There is Doppler evidence for diastolic dysfunction. The right ventricular systolic function is mildly reduced. There is mild mitral annular calcification. There is trace mitral regurgitation. There is mild tricuspid regurgitation. There is mild aortic valve calcification. The aortic root is not well visualized. Final Reading Physician: Arely Hopkins signed on 08/14/2016 10:25 AM Ordering Physician: Laurie Alatorre Performed By: Josephine Osman
[2016-08-14 14:04] LABS: BASE EXCESS -2.2 mEq/L (-2.5-2.5); BICARBONATE 25 mEq/L (22-26); MEASURED OXYGEN SATURATION 92 % (92-95); PCO2 56 mmHg (34-38); PO2 71 mmHg (65-75); TCO2 26 mEq/L (23-27)
--- NOTE | 2016-08-14 14:05 | CPEKG ---
Heart Rate: 106 RR Interval: 566 QRSD Interval: 82 QT Interval: 324 QTC Interval: 431 QRS [place]: 11 T Wave [place]: 53 EKG Severity - ABNORMAL ECG - EKG Impression: ATRIAL FIBRILLATION, V-RATE 88-123 Electronically Signed By: Shawn Darnell 14-Aug-2016 14:57:47
--- NOTE | 2016-08-14 15:17 | GCON ---
CRITICAL CARE CONSULTATION DATE OF CONSULTATION: 08/14/2016 HISTORY OF PRESENT ILLNESS: I was called to see this patient in her room due to increasing somnolen ce. She is a 76-year-old female with multiple medical problems, including morbid obesity, chronic l ower extremity edema and lymphedema with nonhealing wounds who has intermittently lived in skilled n ursing facilities but has recently been living with her family. She had a nontraumatic fall recentl y and was readmitted to the hospital with failure to thrive. She had been having increasing issues of hypoxemia and work of breathing. A chest x-ray showed pulmonary edema. A BNP was 6480, and she was given diuretics. She seemed to be relatively stable this morning and was about to have her lunc h when she was found to be tachypneic and markedly somnolent. She was arousable but was very confus ed and is normally quite conversant and lucid. In any case, her oxygen requirement appeared to be g oing up at this point, and I was called to come see her. She was unable to provide any history, but the above was corroborated by the hospitalist as well as the family and nursing staff at the [facility] as far as we know she has had no chest pain and no palpitations. There has been no fevers, chills or sweats. No other signs of infection. REVIEW OF SYSTEMS: Otherwise negative. PAST MEDICAL HISTORY: 1. Includes morbid obesity. 2. Diabetes. 3. Nonhealing wound of her left heel. 4. Chronic lymphedema. 5. Pulmonary embolism/DVT about 10 years ago. 6. Rheumatoid arthritis. 7. Chronic kidney disease with a creatinine that ranges 1.2 to 1.6. 8. Diastolic heart failure, the stage of which is unknown. 9. Possible COPD or asthma. 10. Chronic hypoxemia. 11. Atrial fibrillation. 12. An episode of bacteremia in January of 2016. 13. Hypertension. 14. Reflux disease. SURGICAL HISTORY: 1. Includes debridement of her foot 07/17/2016. 2. Hernia repair. 3. Cholecystectomy. 4. Hemicolectomy. SOCIAL HISTORY: She is a nonsmoker. No alcohol or IV drug use and was in a skilled nursing previously . FAMILY HISTORY: Includes lung cancer and colon cancer. MEDICATIONS: Include Proventil, Lipitor, vitamin D, Cardizem, Lantus, lispro, Lopressor, oxybutynin , sulfasalazine, Ultram and Coumadin. PHYSICAL EXAMINATION: VITAL SIGNS: T-Max was 36.8, heart rate of 118, blood pressure was 139/92, o xygen saturation 91% on 8 L. GENERAL: She was morbidly obese and somnolent but did open her eyes e asily to voice. Followed commands well. HEENT: Pupils were equally round and react to light and n onicteric and noninjected. Mucous membranes are moist without erythema or exudate. NECK: Supple w ithout adenopathy or jugular vein distention. RESPIRATORY: Breath sounds were diminished but clear to auscultation without rales or wheezing. HEART: Appeared to be irregular but was quite distant. I could not appreciate any murmurs. ABDOMEN: Soft, nontender, nondistended without hepatosplenom egaly. EXTREMITIES: Showed edema, though she had dressings on both lower extremities with areas of old eschar at the edge of her left leg. Her left heel dressing was clean and dry. NEUROLOGIC: Sh e was nonfocal. There were no motor deficits or cranial nerve deficits. OBJECTIVE DATA: Includes a white count of 5.3, hematocrit 32.9, platelets of 136. Sodium is 139, p otassium 5.4, chloride 108, bicarb 25, BUN 45, creatinine 1.3. Glucose 235. An arterial blood gas on oxygen shows pH 727, pCO2 56, PO2 71, bicarb 26, sat of 92%. Her BNP is 9100. An echo done yest erday shows an ejection fraction of 50% to 55%. As said, there was mild tricuspid regurgitation, bu t I am unable to find the estimated PA pressure. There is also diastolic dysfunction. ASSESSMENT/PLAN: 1. Altered mental status. I suspect this may be related to previously unrecognized sleep apnea wit h CO2 retention. She is being transferred to the step-down unit where we will start BiPAP at 12/5 a nd follow up a blood gas in about 40-60 minutes. A chest x-ray is also pending as well as EKG and t roponins, although my suspicion for acute coronary syndrome is low as is sepsis or septic shock or h ypotension or adrenal insufficiency or hypoglycemia or stroke. 2. Diabetes. Will continue her previous medications and control her blood sugars. 3. Nonhealing wound. She has been getting wound care evaluation and dressing changes. 4. Chronic anticoagulation. Her INR is 2.8. I will leave her on her current dose of Coumadin. Th is also makes thromboembolic disease highly unlikely. 5. Hyperkalemia. This is likely related to her acidosis and should improve. Will check on that on her next blood gas. 6. Chronic kidney disease. She is within her baseline, but I think a [place] catheter out to be plac ed. We can monitor her urine output. 7. Fluid overload by chest x-ray. This may be a pneumonitis, but the elevated BNP, which is actual ly higher today, is somewhat concerning, so I think that ongoing small doses of Lasix would be worth while. Critical care time was about 60 minutes in the evaluation and management of this patient. /[id number]/MODL
[2016-08-14 15:59] LABS: BASE EXCESS -1.4 mEq/L (-2.5-2.5); BICARBONATE 25 mEq/L (22-26); BIPAP YES; MEASURED OXYGEN SATURATION 94 % (92-95); PCO2 54 mmHg (34-38); PO2 76 mmHg (65-75); TCO2 27 mEq/L (23-27)
[2016-08-14 16:00] LABS: EXP PRESSURE 5; INSP PRESSURE 12; O2 CONCENTRATIION 40 % (0-100); P/F RATIO 190 RATIO
[2016-08-14] MEDS: WARFARIN SODIUM 5 MG TAB PO SCH (17:37)
[2016-08-14 17:50] LABS: BASE EXCESS -0.8 mEq/L (-2.5-2.5); BICARBONATE 25 mEq/L (22-26); MEASURED OXYGEN SATURATION 94 % (92-95); PCO2 51 mmHg (34-38); PO2 75 mmHg (65-75); TCO2 27 mEq/L (23-27)
[2016-08-14 17:51] LABS: BIPAP YES
[2016-08-14 17:52] LABS: EXP PRESSURE 5; INSP PRESSURE 15; O2 CONCENTRATIION 40 % (0-100); P/F RATIO 188 RATIO
[2016-08-14] MEDS: ATORVASTATIN CALCIUM 40 MG TAB PO SCH (22:17)
[2016-08-14 23:57] LABS: BASE EXCESS 0.7 mEq/L (-2.5-2.5); BICARBONATE 26 mEq/L (22-26); MEASURED OXYGEN SATURATION 97 % (92-95); PCO2 51 mmHg (34-38); PO2 90 mmHg (65-75); TCO2 28 mEq/L (23-27)
[2016-08-14 23:59] LABS: BIPAP YES; EXP PRESSURE 5; INSP PRESSURE 18; O2 CONCENTRATIION 40 % (0-100); P/F RATIO 225 RATIO
[2016-08-15] MEDS: HALOPERIDOL LACT 5 MG/ML INJ IVP PRN ×2 (03:40→06:40)
[2016-08-15 06:11] LABS: BASE EXCESS 1.4 mEq/L (-2.5-2.5); BICARBONATE 27 mEq/L (22-26); MEASURED OXYGEN SATURATION 94 % (92-95); PCO2 52 mmHg (34-38); PO2 75 mmHg (65-75); TCO2 29 mEq/L (23-27)
[2016-08-15 06:12] LABS: EXP PRESSURE 5; INSP PRESSURE 18; O2 CONCENTRATIION 45 % (0-100); P/F RATIO 167 RATIO
[2016-08-15] MEDS: NON-FORMULARY NEW DRUG (Diclofenac Sodium [Voltaren Gel (*)] 1 APP) TP SCH ×4 (06:23→20:50)
[2016-08-15] MEDS: ALBUTEROL 3 ML DEYVIAL IH SCH ×3 (09:16→20:40)
[2016-08-15] MEDS: INSULIN LISPRO 100 UNIT/ML SC SCH ×3 (11:05→17:31)
[2016-08-15] MEDS: INSULIN GLARGINE 100 UNITS/ML SYRINGE SC SCH ×2 (11:21→20:50)
[2016-08-15] MEDS: CHOLECALCIFEROL VIT D3 2,000 UNITS TAB/CAP PO SCH ×2 (11:30→20:50)
[2016-08-15] MEDS: DILTIAZEM CD 180 MG CAP PO SCH (11:30)
[2016-08-15] MEDS: METOPROLOL TARTRATE 100 MG TAB PO SCH ×2 (11:30→20:50)
[2016-08-15] MEDS: sulfaSALAzine 500 MG TAB PO SCH ×2 (11:31→20:51)
[2016-08-15] MEDS: OXYBUTYNIN CHLORIDE 5 MG TAB PO SCH ×2 (11:31→20:51)
[2016-08-15] MEDS ORDERED: PROTOCOL K PHOSPHATE 1 DOSE IV PRN (13:20)
[2016-08-15] MEDS ORDERED: PROTOCOL CALCIUM 1 DOSE IV PRN (13:20)
[2016-08-15] MEDS ORDERED: PROTOCOL MAGNESIUM 1 DOSE IV PRN (13:20)
[2016-08-15] MEDS ORDERED: PROTOCOL POTASSIUM 1 DOSE MISC PRN (13:20)
--- NOTE | 2016-08-15 13:33 | PDINTPN ---
Sales Coach Progress Note Assessment/Plan: Assessment: 76 F with pmh of morbid obesity, chronic LIBERTAD and non-healing wound of left heel , admitted 08/10/16 with FTT after trial outside of SNF. She had a minor fall with abrasion and was near discharge when she developed increasing fatigue and SOB with hypersomnolence. ABG c/w resp acidosis and placed on Bipap overnight with improvement in pH but not much change in CO2. CXR c/w pulmonary edema and BNP 9100. Rx'd with lasix overnight but not much cgange on CXR despite net i/o - 3500. Mental status improved, however. * Altered MS- improved overnight, though haldol confounds the picture. Low threshold for head CT, though neuro exam is non-focal. BS has been normal as has been temp and wbc (new labs pending) * Respiratory failure with CO2 retention- I suspect she has ALEXANDREA/OHS and will need outpatient sleep study eventually. Will give her a trial off bipap today and consider using it QHS. * Chronic anticoagulation 2/2 remote PE/DVT. Recheck INR in AM (2.8 on 08/14). * DM- glucose down to 67 this AM- hold lantus since NPO and follow. * Hyperkalemia- likely related to acidosis- await fu labs. * NHW- followed by wound care- will discuss * * * critical care time 45 minutes 08/15/16 13:34 Subjective: More alert today but did receive haldol last pm 2/2 agitation. C/o difficulty with bipap mask and heel pain today Objective: Vital Signs Temp Pulse Resp BP Pulse Ox 36.5 C 95 19 149/61 H 97 08/15/16 11:37 08/15/16 11:37 08/15/16 11:37 08/15/16 11:37 08/15/16 11:37 Laboratory Results 08/13/16 05:20 08/14/16 05:30 08/14/16 08/15/16 08/16/16 05:59 05:59 05:59 Intake Total 750 Output Total 850 0525 Balance -850 -4867 PT 30.0 SEC (12.0-15.0) H 08/14/16 05:30 INR 2.82 (0.83-1.16) H 08/14/16 05:30 Physical Exam - Physical Exam General Appearance: no apparent distress, obese EENT: PERRL/EOMI Neck: supple Respiratory: lungs clear, No respiratory distress, No rales, No rhonchi, No wheezing Cardiac/Chest: regular rate, rhythm, edema Abdomen: normal bowel sounds, non-tender, soft Skin: normal color, warm/dry, No rash Extremities: pedal edema, other (bilateral dressings) Neuro/Psych: alert, No abnormal community relations coordinator II-XII ICD10 Worksheet Patient Problems: Problems Problem Status Onset Abrasion Acute Morbid obesity Acute Atrial fibrillation Acute Cellulitis Acute Hyperglycemia Acute
[2016-08-15] MEDS ORDERED: FUROSEMIDE 40 MG/4 ML VIAL IVP ONE (13:35)
[2016-08-15 14:14] LABS: % IMMATURE GRANULYOCYTES 0.2 % (0.0-1.1); ABSOLUTE IMMATURE GRANULOCYTES 0.01 10^3/uL (0.00-0.10); ADD DIFF? NO; ADD MORPH? NO; ADD SCAN? NO; ATYPICAL LYMPHOCYTE FLAG 10 (0-99); FRAGMENT RBC FLAG 20 (0-99); HEMATOCRIT 34.4 % (38.0-47.0); HEMOGLOBIN 10.6 g/dL (12.6-16.3); LEFT SHIFT FLG 0 (0-99); LIPEMIA HEMOLYSIS FLAG 80 (0-99); MEAN CELL HEMOGLOBIN CONCENTR. 30.8 g/dL (32.4-36.7); MEAN PLATELET VOLUME 9.6 fL (8.7-11.7); PLATELET CLUMPS FLAG 0 (0-99); PLATELET COUNT 129 10^3/uL (150-400); RED BLOOD CELL COUNT 3.66 10^6/uL (4.18-5.33); RED CELL DISTRIBUTION WIDTH 17.6 % (11.5-15.2)
[2016-08-15 14:24] LABS: INR 3.27 (0.83-1.16); PROTIME(PATIENT) 33.8 SEC (12.0-15.0)
[2016-08-15 14:36] LABS: ANION GAP 7 mEq/L (8-16); CARBON DIOXIDE 30 mEq/l (22-31); CHLORIDE 104 mEq/L (97-110); CREATININE 1.3 mg/dL (0.6-1.0); GLOMERULAR FILTRATION RATE 40; GLUCOSE 96 mg/dL (70-100); POTASSIUM 4.8 mEq/L (3.5-5.2); SODIUM 141 mEq/L (134-144)
--- NOTE | 2016-08-15 15:17 | WOCRNPDOC ---
WOCRN Advanced Assessment Note - Skin Integrity Problem, Advanced Assess Right Buttock Pressure Injury Dressing Type: Allevyn Life Dressing Description: Clean/Dry, Intact Exudate Color: Yellow Integumentary Issue Intervention: Dressing Changed Deonna Wound Tissue: Blanching, Erythema Wound Bed Color: Brown, Inland, Yellow Wound Bed Constitution: Smooth Tissue, Adhered Slough Wound Edges: Epithelizing, Attached Pressure Injury Stage: Unstageable Pressure Injury Present on Admit: Yes Skin Integrity Problem Comment: Cleaned with wound cleanser and gauze. Skin prep applied deonna wound. Honey gel to wound bed. Covered with telfa and tegaderm , the padded with allevyn. Carmella and Bony in room for care. Wound care will round again Saturday 08/19 Bilateral Buttock Excoriation Dressing Type: Allevyn Life Skin Integrity Problem Comment: Healing. No further need for dressings. Right Medial Buttock Dressing Type: Allevyn Life Dressing Description: Clean/Dry, Intact Exudate Amount: None Wound Bed Constitution: Adhered Slough Skin Integrity Problem Comment: Cleaned with wound cleanser and gauze. Skin prep applied deonna wound. Honey gel to wound bed. Covered with telfa and tegaderm , the padded with allevyn. Carmella and Bony in room for care. Left Heel Dressing Type: Open to Air, Promogran Ag+ Exudate Amount: None Integumentary Issue Intervention: Visualized Under Dressing Deonna Wound Tissue: Calloused Skin Integrity Problem Comment: Wound bed dry and packed tight with virgilio. Manually removed most of external virgilio. Will adjust orders accordingly. Bilateral Lower Leg Dressing Type: Open to Air Deonna Wound Tissue: Erythema, Scaly, Lipodermatosclerosis, Hemosiderin Staining, Venous Dermatitis, Hair Loss, Hypertrophic, Lichenification Skin Integrity Problem Comment: Per wound YVONNE Burton at outpatient wound clinic patient has baseline erythema on bilateral lower legs. The area of erythema is mostly consistent with venous stasis changes and the area being under compression, but recommended that hospitalist visualize area. Reported to Carmella RUSSELL.
--- NOTE | 2016-08-15 15:22 | HOSPPROG ---
Hospitalist Progress Note Assessment/Plan: Patient is a 75-year-old female presented to the emergency room due to gait instability. She sustained a fall after walking to the toilet earlier that day. On admission she was complaining of right knee pain with any type of movement. Her daughters were with her and are unable to care for her at home. * Overall failure to thrive due to weakness and gait instability - she was recently at a senior care facility approximately 2 months ago - Physical therapy and Occupational therapy are working with her /recommending a senior care facility - suspect her failure to thrive is multifactorial including morbid obesity, chronic lymphedema, atrial fibrillation *acute Encephalopathy due to hypercarbia - resolved * acute hypercarbic respiratory failure * interestingly she is better clinically better CO2 is not really changed. Her acidosis has improved some. *fluid overloaded - Another dose of Lasix was given today * atrial fibrillation - reviewed her 12 lead ECG which shows atrial fibrillation rate controlled - continue oral anticoagulation,atenolol and aspirin therapy - INR little bit high today. did not get Coumadin yesterday. will hold today * chronic kidney disease - creatinine is 1.3 * hyperkalemia - resolved *chronic hypoxemia -cont O2 -patient has underlying COPD * anemia -follow * right buttock pressure injury /present on admission with gluteal pressure sores - appreciate wound care - doesn't appear infectious * chronic left heel cellulitis with a history of strep mitis bacteremia and foot infections -wound care * severe chronic lymphedema - likely impaired impacting her ability to ambulate -would benefit from lymphatic drainage from PT (she had this done in the past with good results) -patient has her own pneumatic compression stockings * type 2 diabetes -on long-acting insulin, blood sugars are little bit low. We will continue to watch -ADA diet *Morbid obesity/BMI of 45 *plan:CM working on placement/ daughter to look at [facility]. Patient doesn't want to go to [facility]/ doesn't like the food there. Subjective: much more awake today. Denies shortness of breath Objective: Vital Signs Temp Pulse Resp BP Pulse Ox 36.5 C 95 19 149/61 H 97 08/15/16 11:37 08/15/16 11:37 08/15/16 11:37 08/15/16 11:37 08/15/16 11:37 Laboratory Results 08/15/16 14:07 08/15/16 14:07 08/14/16 08/15/16 08/16/16 05:59 05:59 05:59 Intake Total 750 Output Total 219 4275 Balance -850 -3525 PT 33.8 SEC (12.0-15.0) H 08/15/16 14:07 INR 3.27 (0.83-1.16) H 08/15/16 14:07 discussed with pulmonology chest x-ray personally reviewed interpreted - Physical Exam Constitutional: no apparent distress, appears nourished, not in pain Eyes: anicteric sclera, EOMI Ears, Nose, Mouth, Throat: moist mucous membranes, hearing normal, ears appear normal Cardiovascular: regular rate and rhythym, no murmur, rub, or gallop, edema ( lymphedema) Respiratory: no respiratory distress, no rales or rhonchi, clear to auscultation ( anterior) Gastrointestinal: normoactive bowel sounds, soft, non-tender abdomen, no palpable masses Skin: warm Neurologic: AAOx3 Psychiatric: interacting appropriately, not anxious, not encephalopathic, thought process linear ICD10 Worksheet Patient Problems: Problems Problem Status Onset Abrasion Acute Morbid obesity Acute Atrial fibrillation Acute Cellulitis Acute Hyperglycemia Acute
[2016-08-15 18:53] LABS: POTASSIUM 4.8 mEq/L (3.5-5.2)
[2016-08-15] MEDS: ATORVASTATIN CALCIUM 40 MG TAB PO SCH (20:50)
[2016-08-16 05:18] LABS: IONIZED CALCIUM 1.25 MMOL/L (1.12-1.30)
[2016-08-16 05:31] LABS: INR 3.09 (0.83-1.16); PROTIME(PATIENT) 32.3 SEC (12.0-15.0)
[2016-08-16] MEDS: NON-FORMULARY NEW DRUG (Diclofenac Sodium [Voltaren Gel (*)] 1 APP) TP SCH ×4 (05:38→21:26)
[2016-08-16 05:54] LABS: ANION GAP 7 mEq/L (8-16); CARBON DIOXIDE 26 mEq/l (22-31); CHLORIDE 106 mEq/L (97-110); CREATININE 1.1 mg/dL (0.6-1.0); GLOMERULAR FILTRATION RATE 49; GLUCOSE 138 mg/dL (70-100); MAGNESIUM 1.2 mg/dL (1.6-2.3); POTASSIUM 4.8 mEq/L (3.5-5.2); SODIUM 139 mEq/L (134-144)
[2016-08-16] MEDS: METOPROLOL TARTRATE 100 MG TAB PO SCH ×2 (08:00→21:21)
[2016-08-16] MEDS: sulfaSALAzine 500 MG TAB PO SCH ×2 (08:03→21:21)
[2016-08-16] MEDS: OXYBUTYNIN CHLORIDE 5 MG TAB PO SCH ×2 (08:03→21:23)
[2016-08-16] MEDS: CHOLECALCIFEROL VIT D3 2,000 UNITS TAB/CAP PO SCH ×2 (08:03→21:22)
[2016-08-16] MEDS: INSULIN GLARGINE 100 UNITS/ML SYRINGE SC SCH ×2 (08:04→21:24)
[2016-08-16] MEDS: DILTIAZEM CD 180 MG CAP PO SCH (08:04)
[2016-08-16] MEDS: ALBUTEROL 3 ML DEYVIAL IH SCH ×3 (09:11→21:06)
[2016-08-16] MEDS: INSULIN LISPRO 100 UNIT/ML SC SCH ×3 (11:38→17:15)
--- NOTE | 2016-08-16 12:31 | PDINTPN ---
Industrial Technologist Progress Note Assessment/Plan: Assessment: 76 F with pmh of morbid obesity, chronic LIBERTAD and non-healing wound of left heel , admitted 08/10/16 with FTT after trial outside of SNF. She had a minor fall with abrasion and was near discharge when she developed increasing fatigue and SOB with hypersomnolence. ABG c/w resp acidosis and placed on Bipap overnight with improvement in pH but not much change in CO2. CXR c/w pulmonary edema and BNP 9100. Rx'd with lasix overnight but not much cgange on CXR despite net i/o - 3500. Mental status improved, however. * Altered MS- resolved with bipap and diuresis * Respiratory failure with CO2 retention- I suspect she has ALEXANDREA/OHS and will need outpatient sleep study eventually. Has done well off bipap x 48 hours. * Chronic anticoagulation 2/ remote PE/DVT. Recheck INR in AM (2.8 on 08/14). * DM- glucose down to 67 this AM- hold lantus since NPO and follow. * Hyperkalemia- likely related to acidosis- await fu labs. * NHW- followed by wound care- will discuss * Dispo: remains stable and prob OK for SNF soon Subjective: Stable overnight. No sob. Pain controlled. Improved O2 requirement (wears at home) Objective: Vital Signs Temp Pulse Resp BP Pulse Ox 36.6 C 88 24 H 138/69 H 23 L 08/16/16 08:00 08/16/16 12:05 08/16/16 12:05 08/16/16 12:05 08/16/16 12:05 Laboratory Results 08/15/16 14:07 08/16/16 05:10 08/15/16 08/16/16 08/17/16 05:59 05:59 05:59 Intake Total 750 1250 Output Total 4275 3500 Balance -3525 -2250 PT 32.3 SEC (12.0-15.0) H 08/16/16 05:10 INR 3.09 (0.83-1.16) H 08/16/16 05:10 Physical Exam - Physical Exam General Appearance: alert, no apparent distress, obese EENT: PERRL/EOMI Neck: supple Respiratory: lungs clear, normal breath sounds, No respiratory distress, No rhonchi, No wheezing Abdomen: non-tender, soft, No distended Skin: normal color, No rash Lymphatic: no adenopathy Extremities: pedal edema Neuro/Psych: alert, normal mood/affect, oriented x 3 ICD10 Worksheet Patient Problems: Problems Problem Status Onset Abrasion Acute Morbid obesity Acute Atrial fibrillation Acute Cellulitis Acute Hyperglycemia Acute
--- NOTE | 2016-08-16 13:21 | HOSPPROG ---
Hospitalist Progress Note Assessment/Plan: # FTT - did not do well at home - CM looking into placement, maybe at [facility] # acute encephalopathy d/t hypercarbia with agitation - haldol prn # acute on chronic hypercarbic/hypoxic resp failure - cont bipap - noct O2 # COPD # a-fib with mildly elevated INR - hold warf, likely restart tomorrow - dilt # marked LE lymphedema - will schedule lasix 40 po bid # CKD at baseline # R buttock pressure injury, POA # anemia - stable, chronic # chronic L heel cellulitis, hx strep mitis bacteremia # DM2 - glucs ok # morbid obesity # FCFT ## new pt to me chart reviewed discussed with Dr Garcia on ICU rounds - transfer to med surg Subjective: no complaints today; comfortable, eating lunch Objective: Vital Signs Temp Pulse Resp BP Pulse Ox 36.6 C 88 24 H 138/69 H 23 L 08/16/16 08:00 08/16/16 12:05 08/16/16 12:05 08/16/16 12:05 08/16/16 12:05 Laboratory Results 08/15/16 14:07 08/16/16 05:10 08/15/16 08/16/16 08/17/16 05:59 05:59 05:59 Intake Total 750 1250 Output Total 4275 3500 Balance -3525 -2250 PT 32.3 SEC (12.0-15.0) H 08/16/16 05:10 INR 3.09 (0.83-1.16) H 08/16/16 05:10 - Physical Exam Constitutional: no apparent distress, obese Cardiovascular: regular rate and rhythym, no murmur, rub, or gallop Respiratory: no respiratory distress, no rales or rhonchi, clear to auscultation Gastrointestinal: normoactive bowel sounds, soft, non-tender abdomen, no palpable masses Musculoskeletal: other (marked bilat LE lymphedema) ICD10 Worksheet Patient Problems: Problems Problem Status Onset Atrial fibrillation Acute Cellulitis Acute Hyperglycemia Acute Abrasion Acute Morbid obesity Acute
[2016-08-16] MEDS ORDERED: MAGNESIUM SULF 2 GM/WATER 50 ML IV ONE (13:58)
[2016-08-16] MEDS: FUROSEMIDE 40 MG TAB PO SCH (14:48)
[2016-08-16] MEDS: ATORVASTATIN CALCIUM 40 MG TAB PO SCH (21:20)
[2016-08-17] MEDS: NON-FORMULARY NEW DRUG (Diclofenac Sodium [Voltaren Gel (*)] 1 APP) TP SCH ×4 (06:08→21:00)
[2016-08-17] MEDS: ALBUTEROL 3 ML DEYVIAL IH SCH ×3 (09:06→22:24)
[2016-08-17] MEDS: INSULIN GLARGINE 100 UNITS/ML SYRINGE SC SCH ×2 (09:37→21:49)
[2016-08-17] MEDS: FUROSEMIDE 40 MG TAB PO SCH ×2 (09:37→16:36)
[2016-08-17] MEDS: sulfaSALAzine 500 MG TAB PO SCH ×2 (09:37→20:57)
[2016-08-17] MEDS: CHOLECALCIFEROL VIT D3 2,000 UNITS TAB/CAP PO SCH ×2 (09:37→20:57)
[2016-08-17] MEDS: METOPROLOL TARTRATE 100 MG TAB PO SCH ×2 (09:37→20:57)
[2016-08-17] MEDS: DILTIAZEM CD 180 MG CAP PO SCH (09:38)
[2016-08-17] MEDS: INSULIN LISPRO 100 UNIT/ML SC SCH ×3 (09:48→18:44)
[2016-08-17] MEDS: OXYBUTYNIN CHLORIDE 5 MG TAB PO SCH ×2 (10:10→20:57)
--- NOTE | 2016-08-17 12:55 | HOSPPROG ---
Hospitalist Progress Note Assessment/Plan: Patient is a 75-year-old female presented to the emergency room due to gait instability. She sustained a fall after walking to the toilet earlier that day. On admission she was complaining of right knee pain with any type of movement. Her daughters were with her and are unable to care for her at home. * Overall failure to thrive due to weakness and gait instability - she was recently at a [facility] facility approximately 2 [facility] ago - multifactorial including morbid obesity, chronic lymphedema, atrial fibrillation - poss placement at [facility] *acute delerium/acute encephalopathy -due to hypercarbia -was in ICU for a few days for this - back to her baseline *fluid overloaded -morrissey placed for strict I & O * atrial fibrillation - reviewed her 12 lead ECG which shows atrial fibrillation rate controlled - continue oral anticoagulation,atenolol and aspirin therapy - check INR in the a.m. most recent INR was therapeutic and on the high side * chronic kidney disease - creatinine is 1.1 * hyperkalemia -Cozaar on hold *chronic hypoxemia -cont O2 -patient has underlying COPD * anemia -follow * right buttock pressure injury /present on admission with gluteal pressure sores - appreciate wound care - doesn't appear infectious * chronic left heel cellulitis with a history of strep mitis bacteremia and foot infections -wound care * severe chronic lymphedema - started on lasix bid - patient has her own pneumatic compression stockings * type 2 diabetes -on long-acting insulin, glucoses are uncontrolled -will add sliding scale -ADA diet *Morbid obesity/BMI of 45 * plan. Suspect she should be ready in the next 1-2 days for discharge. Recheck an INR in the morning. Subjective: Liliya is upset about all the bruises to her arms getting blood draws. Objective: Vital Signs Temp Pulse Resp BP Pulse Ox 37.0 C 110 H 15 159/94 H 98 08/17/16 11:29 08/17/16 11:29 08/17/16 11:29 08/17/16 11:29 08/17/16 11:29 Laboratory Results 08/15/16 14:07 08/16/16 05:10 08/16/16 08/17/16 08/18/16 05:59 05:59 05:59 Intake Total 1250 1500 Output Total 3500 2225 Balance -2250 -725 PT 32.3 SEC (12.0-15.0) H 08/16/16 05:10 INR 3.09 (0.83-1.16) H 08/16/16 05:10 - Physical Exam Constitutional: chronically ill appearing, obese, uncomfortable Eyes: PERRL Ears, Nose, Mouth, Throat: hearing normal Cardiovascular: irregularly irregular, other ( significant lower extremity lymphedema) Respiratory: no respiratory distress, reduced air movement Gastrointestinal: normoactive bowel sounds, other ( Large and round) Skin: warm Musculoskeletal: generalized weakness Neurologic: other ( she is alert and oriented but does not really wanted to talk with me) Psychiatric: interacting appropriately, flat affect ICD10 Worksheet Patient Problems: Problems Problem Status Onset Abrasion Acute Morbid obesity Acute Atrial fibrillation Acute Cellulitis Acute Hyperglycemia Acute
[2016-08-17 13:33] LABS: ADD DIFF? NO; ADD MORPH? NO; ADD SCAN? NO; ATYPICAL LYMPHOCYTE FLAG 20 (0-99); FRAGMENT RBC FLAG 0 (0-99); HEMATOCRIT 34.8 % (38.0-47.0); HEMOGLOBIN 10.8 g/dL (12.6-16.3); LEFT SHIFT FLG 0 (0-99); LIPEMIA HEMOLYSIS FLAG 80 (0-99); MEAN CELL VOLUME 93.3 fL (81.5-99.8); MEAN PLATELET VOLUME 10.3 fL (8.7-11.7); PLATELET CLUMPS FLAG 0 (0-99); PLATELET COUNT 134 10^3/uL (150-400); RED BLOOD CELL COUNT 3.73 10^6/uL (4.18-5.33); RED CELL DISTRIBUTION WIDTH 17.2 % (11.5-15.2)
[2016-08-17 13:35] LABS: INR 2.45 (0.83-1.16); PROTIME(PATIENT) 26.8 SEC (12.0-15.0)
[2016-08-17 13:36] LABS: ANION GAP 6 mEq/L (8-16); CALCIUM 9.4 mg/dL (8.5-10.4); CARBON DIOXIDE 33 mEq/l (22-31); CHLORIDE 101 mEq/L (97-110); CREATININE 1.1 mg/dL (0.6-1.0); GLOMERULAR FILTRATION RATE 49; GLUCOSE 140 mg/dL (70-100); POTASSIUM 4.6 mEq/L (3.5-5.2); SODIUM 140 mEq/L (134-144)
[2016-08-17] MEDS ORDERED: WARFARIN SODIUM 2.5 MG TAB PO ONE (16:30)
[2016-08-17] MEDS: ATORVASTATIN CALCIUM 40 MG TAB PO SCH (20:57)
[2016-08-18] MEDS: NON-FORMULARY NEW DRUG (Diclofenac Sodium [Voltaren Gel (*)] 1 APP) TP SCH ×3 (04:01→15:05)
[2016-08-18 05:30] LABS: INR 2.68 (0.83-1.16); PROTIME(PATIENT) 28.8 SEC (12.0-15.0)
[2016-08-18] MEDS: INSULIN LISPRO 100 UNIT/ML SC SCH ×3 (09:05→17:03)
[2016-08-18] MEDS: CHOLECALCIFEROL VIT D3 2,000 UNITS TAB/CAP PO SCH (09:07)
[2016-08-18] MEDS: INSULIN GLARGINE 100 UNITS/ML SYRINGE SC SCH (09:07)
[2016-08-18] MEDS: METOPROLOL TARTRATE 100 MG TAB PO SCH (09:08)
[2016-08-18] MEDS: OXYBUTYNIN CHLORIDE 5 MG TAB PO SCH (09:09)
[2016-08-18] MEDS: FUROSEMIDE 40 MG TAB PO SCH ×2 (09:09→15:04)
[2016-08-18] MEDS: sulfaSALAzine 500 MG TAB PO SCH (09:09)
[2016-08-18] MEDS: DILTIAZEM CD 180 MG CAP PO SCH (09:10)
[2016-08-18] MEDS: ALBUTEROL 3 ML DEYVIAL IH SCH ×2 (09:41→16:13)
--- NOTE | 2016-08-18 15:07 | PDDCSUM ---
Discharge Summary Discharge Summary: DISCHARGE SUMMARY FOLLOW-UP ITEMS: Follow-up PT and INR as an outpatient, goal 2-3 DATE OF ADMISSION: 08/10/2016 DATE OF DISCHARGE: 08/18/2016 DISCHARGE DIAGNOSES: 1. Acute on chronic hypercapnic and hypoxic respiratory failure 2. Acute encephalopathy 3. Failure to thrive with gait instability 4. Permanent atrial fibrillation 5. Chronic kidney disease stage 3 6. Hyperkalemia 7. Anemia of chronic inflammatory disease 8. Pressure injury present on admission 9. Severe chronic lymphedema 10. Type 2 diabetes mellitus with hyperglycemia 11. Morbid obesity with BMI of 45 12. COPD 13. Suspected depression 14. Acute on chronic diastolic congestive heart failure CONSULTATIONS: Pulmonary Critical Care, Wound Care PROCEDURES / IMAGING: Echocardiogram demonstrating diastolic dysfunction, ejection fraction 50-55% CHIEF COMPLAINT: Fall SUBJECTIVE: Patient reports that she is feeling fine at time of discharge, she reports that she has no motivation PHYSICAL EXAM ON DISCHARGE: Systolic blood pressure is 120-150, heart rate 80s, afebrile overnight, satting well on 3 L nasal cannula, morbidly obese, flat affect, depressed but not suicidal, poor motivation, stasis dermatitis bilateral lower extremities left greater than right, no surrounding erythema, good inspiratory and expiratory air movement bilateral lung [place] LABS ON DISCHARGE: INR 2.7, creatinine 1.1 HOSPITAL COURSE BY PROBLEM: 1. Acute on chronic hypercapnic and hypoxic respiratory failure. Evidenced by visibly labored breathing, SpO2 of 63%, objective tachypnea with respiratory rate of 30, pCO2 of 56 with a pH of 7.27, secondary to combination of body habitus hypoventilation, acute diastolic CHF exacerbation. She received BiPAP therapy in the intensive care unit and was evaluated by [facility]. She received diuresis and was eventually weaned off of BiPAP. She continues to require supplemental oxygen and we require nightly CPAP. 2. Acute on chronic diastolic congestive heart failure exacerbation. Evidenced by a BNP of 6480+ visible hypervolemia plus pulmonary vascular congestion on chest imaging and pulmonary symptoms. Echo demonstrated diastolic dysfunction, she responded to IV Lasix and was transitioned to oral Lasix therapy. She will be continued on 40 mg twice daily with routine electrolytes and creatinine level monitoring. 3. Chronic kidney disease stage 3. Peak serum creatinine level 1.4, discharge level 1.1. Continue to monitor creatinine and potassium level while being diuresed. 4. Pressure injury. Evaluated by Wound Care, receiving regular wound care with instructions at discharge. 5. Chronic severe lymphedema. Patient has evidence of lymphedema with stasis dermatitis on bilateral lower extremities, this has responded positively to Lasix. 6. Suspected depression. The patient has a flat affect and expresses poor motivation. She reports that she had a better mood when she was living in her trailer but she does endorse feeling somewhat depressed for quite some time. Recommend an outpatient psychiatry consultation after discharge. 7. Permanent atrial fibrillation. Patient was continued on Coumadin, she remained in a rate controlled atrial fibrillation rhythm. DISCHARGE MEDICATIONS: Please see official discharge medication reconciliation sheet in chart , Lasix 40 mg twice daily, Coumadin daily. DISCHARGE INSTRUCTIONS: Patient should be scheduled for outpatient psychiatry evaluation and she should have routine creatinine BUN and lytes and INR monitoring. TIME SPENT: Greater than 30 minutes were spent on direct patient care, as well as discharge planning and preparation.
--- NOTE | 2016-08-18 15:14 | PDIAF ---
- Diagnosis Diagnosis: Acute on chronic respiratory failure, diastolic CHF, morbid obesity Code Status: Full Code - Medication Management Discharge Medications: Medications to Continue on Transfer Albuterol [Proventil Neb] 3 ml IH TID 02/20/16 [Last Taken 08/03/16] Diltiazem HCl [Cartia XT 180mg] 180 mg PO DAILY 02/20/16 [Last Taken 08/10/16] Oxybutynin Chloride [Ditropan] 5 mg PO BID 02/20/16 [Last Taken 08/09/16] Atorvastatin Calcium [Lipitor 40 mg (*)] 40 mg PO HS 08/10/16 [Last Taken ] Diclofenac Sodium [Voltaren Gel (*)] 1 radha TP QID 08/10/16 [Last Taken Unknown] Herbals/Supplements -Info Only 1 ea PO DAILY 08/10/16 [Last Taken Unknown] Insulin Aspart [novoLOG] 5 units SC TIDMEAL 08/10/16 [Last Taken 08/09/16] Insulin Detemir [Levemir] 20 unit SQ BID 08/10/16 [Last Taken 08/09/16] Metoprolol Tartrate [Lopressor 100 mg (*)] 100 mg PO BID 08/10/16 [Last Taken 08:00] Warfarin Sodium [Coumadin 5MG (*)] 5 mg PO DAILY16 08/10/16 [Last Taken 08/09/16 ] Allopurinol [Allopurinol 300 MG (RX)] 300 mg PO HS 08/11/16 [Last Taken 08/10/16 ] Cholecalciferol Vit D3 [Vitamin D3 (*)] 2,000 units PO BID 08/11/16 [Last Taken 08/10/16 08:00] Furosemide [Lasix 40 MG (*)] 40 mg PO BID@0900,1500 tab 08/18/16 [Last Taken Unknown] Losartan Potassium [Cozaar 25 mg (*)] 12.5 mg PO DAILY #30 tab 08/18/16 [Last Taken Unknown] sulfaSALAzine [Azulfidine 500 MG (*)] 500 mg PO BID tab 08/18/16 [Last Taken Unknown] Program Evaluator Antibiotics: NA Discharge Medications: Refer to the Discharge Home Medication list for PRN reason. PICC Care - Routine: N/A - Orders Services needed: Registered Nurse, Physical Therapy, Occupational Therapy Oxygen: 3L NC continuous Diet Recommendation: cardiac -low fat low salt Weigh Patient: weekly [place]: Not applicable Wound Care Instructions: Resume orders from outpatient wound healing center for heel care upon discharge. Also please have outpatient wound healing center begin consulting for buttock wounds. Right Buttock wound care: Dressing change orders for Right buttock wounds (there are 2 of them) : Change MWF and prn. 1) cleanse site w/ wound cleanser and gauze,. 2) apply skin prep liberally to mar-wound skin. 3) apply Honey gel to cover wound bed and cover with tiny piece of telfa, then tegaderm and then. 4)cover w/ Allevyn life or other foam dressing to protect area Activity/Weight Bearing Restrictions: as tolerates Additional: Please schedule outpatient wound care follow-up appointment - Labs/Radiology BMP Date: 08/25/16 PT/INR Date: 08/25/16 Call or Fax Lab and Imaging Results to: Dr. Ramirez - Follow Up Care Current Providers and Referrals: Patient,NotPresent [Unknown] - As per Instructions Kin Abel MD [Medical Doctor] - follow up in 2 weeks Alfredo Ramirez MD [Medical Doctor] - 3 days of d/c SNF/Rehab
[2016-08-18 16:20] VITALS: PULSE 85; RESP 22; O2SAT 93
[2016-08-18] MEDS ORDERED: WARFARIN SODIUM 2.5 MG TAB PO SCH (16:30)
[2016-08-18 16:36] VITALS: BP 145/82; TEMP 98.5
== END 2016-08-18 19:24 | DRG 640 ==
LOC: EDUNIT# → OBSVTOIN 16:41 → F3E 17:51 → F2N 08-14 14:23 → F3N 08-17 04:23
PROVIDERS: ADMIT Family Medicine; ATTEND Family Medicine
DX: R62.7 Adult failure to thrive (principal); G93.40 Encephalopathy, unspecified; J96.21 Acute and chronic respiratory failure with hypoxia; J96.22 Acute and chronic respiratory failure with hypercapnia; I50.33 Acute on chronic diastolic (congestive) heart failure; E11.65 Type 2 diabetes mellitus with hyperglycemia; E87.5 Hyperkalemia; L89.302 Pressure ulcer of unspecified buttock, stage 2; L03.116 Cellulitis of left lower limb; F32.9 Major depressive disorder, single episode, unspecified; I48.2 Chronic atrial fibrillation; E11.22 Type 2 diabetes mellitus with diabetic chronic kidney disease; I12.9 Hypertensive chronic kidney disease with stage 1 through stage 4 chronic kidney disease, or unspecified chronic kidney disease; N18.3 Chronic kidney disease, stage 3 (moderate); I97.2 Postmastectomy lymphedema syndrome; J44.9 Chronic obstructive pulmonary disease, unspecified; D53.9 Nutritional anemia, unspecified; M06.9 Rheumatoid arthritis, unspecified; E66.01 Morbid (severe) obesity due to excess calories; Z68.42 Body mass index [BMI] 45.0-49.9, adult; Z79.01 Long term (current) use of anticoagulants; Z79.4 Long term (current) use of insulin; Z85.3 Personal history of malignant neoplasm of breast; Z99.81 Dependence on supplemental oxygen; Z87.442 Personal history of urinary calculi; Z86.711 Personal history of pulmonary embolism
CPT/HCPCS: 97110-GP; 97116-GP; 97161-GP; 97165-GO; 97530-GO; 97530-GP; 97535-GO; G0008; G8978-GP-CL; G8979-GP-CI; G8987-GO-CM; G8988-GO-CJ; J1815